=== PATIENT | male | born 1965 | race Hispanic/Latino ===

== ENCOUNTER 2017-06-02 18:13 | Emergency (ER) | payer BC ==
--- NOTE | 2017-06-02 21:02 | ER ---
Nurse's Notes [facility] Name: Reginaldo Ahmadi Age: 51 yrs Sex: Male : 1965 Arrival Date: 06/02/2017 Time: 18:14 Bed 13 Private MD: Diagnosis: Pain in left leg Presentation: 06/02 18:45 Presenting complaint: Patient states: Burning pain to left thigh that started last aj week. Transition of care: patient was not received from another setting of care. Onset of symptoms was May 26, 2017. Initial Sepsis Screen: Does the patient meet any 2 criteria? No. Patient's initial sepsis screen is negative. Does the patient have a suspected source of infection? No. Patient's initial sepsis screen is negative. Care prior to arrival: None. 18:45 Method Of Arrival: Ambulatory aj 18:45 Acuity: WANG 3 aj Triage Assessment: 18:47 General: Appears in no apparent distress. comfortable, Behavior is calm, cooperative, aj appropriate for age. Pain: Complains of pain in left quadriceps Pain currently is 5 out of 10 on a pain scale. Neuro: Level of Consciousness is awake, alert, obeys commands, Oriented to person, place, time, situation. Respiratory: Airway is patent Respiratory effort is even, unlabored, Respiratory pattern is regular, symmetrical. Derm: Skin is intact, is healthy with good turgor, Skin is pink, warm \T\ dry. normal. Musculoskeletal: Reports pain in lateral aspect of left thigh. Historical: - Allergies: 18:47 No Known Allergies; aj - Home Meds: 18:47 None [Active]; aj - PMHx: 18:47 Hypertension; Sleep Apnea; aj - PSHx: 18:47 nose; aj - Immunization history:: Adult Immunizations up to date. - Social history:: Smoking status: Patient/guardian denies using tobacco. Screenin:26 Abuse screen: Denies threats or abuse. Denies injuries from another. Nutritional bs1 screening: No deficits noted. Tuberculosis screening: No symptoms or risk factors identified. Fall Risk None identified. Assessment: 19:24 General: Appears in no apparent distress. Behavior is calm, cooperative, appropriate bs1 for age. Pain: Complains of pain in lateral aspect of left thigh and left leg and left quadriceps. Neuro: Level of Consciousness is awake, alert, obeys commands, Oriented to [employer] Worker are equal bilaterally Moves all extremities. Cardiovascular: Denies chest pain, palpitations, shortness of breath, Heart tones S1 S2 present Capillary refill < 3 seconds Patient's skin is warm and dry. Respiratory: Airway is patent Trachea midline Respiratory effort is even, unlabored, Respiratory pattern is regular, symmetrical, Breath sounds are clear bilaterally. GI: No deficits noted. No signs and/or symptoms were reported involving the gastrointestinal system. : No deficits noted. No signs and/or symptoms were reported regarding the genitourinary system. EENT: No deficits noted. No signs and/or symptoms were reported regarding the EENT system. Derm: Skin is intact, Skin is pink, warm \T\ dry. Musculoskeletal: Circulation, motion, and sensation intact. Capillary refill < 3 seconds, Range of motion: limited in left leg. 20:30 Reassessment: No changes from previously documented assessment. Patient and/or family bs1 updated on plan of care and expected duration. Pain level reassessed. Patient is alert, oriented x 3, equal unlabored respirations, skin warm/dry/pink. 21:22 Reassessment: Patient appears in no apparent distress at this time. Patient and/or bs1 family updated on plan of care and expected duration. Pain level reassessed. Patient is alert, oriented x 3, equal unlabored respirations, skin warm/dry/pink. Patient states feeling better. Vital Signs: 18:47 BP 147 / 98; Pulse 88; Resp 20; Temp 97.8; Pulse Ox 99% on R/A; Weight 89.36 kg; Height aj 5 ft. 5 in. (165.10 cm); Pain 5/10; 20:37 BP 121 / 89; Pulse 74; Resp 16; Pulse Ox 99% on R/A; mt 21:24 BP 120 / 83; Pulse 71; Resp 16; Temp 98.2(O); Pulse Ox 99% on R/A; bs1 18:47 Body Mass Index 32.78 (89.36 kg, 165.10 cm) ED Course: 18:14 Patient arrived in ED. as 18:46 Triage completed. aj 18:47 Arm band placed on right wrist. Patient placed in waiting room, Patient notified of aj wait time. 19:11 Aye Brown, TREVER is Primary Nurse. bs1 19:24 Mansoor Pradhan PA is PHCP. cp 19:24 Mansoor Dumont MD is Attending Physician. cp 19:26 Patient has correct armband on for positive identification. Bed in low position. Call bs1 light in reach. Side rails up X 1. Pulse ox on. NIBP on. 21:00 US Extremity Venous Uni Ltd In Process Unspecified. EDMS 21:02 Ultrasound completed. Patient tolerated well. aa4 21:23 No provider procedures requiring assistance completed. Patient did not have IV access bs1 during this emergency room visit. Administered Medications: No medications were administered Outcome: 21:02 Discharge ordered by MD. cp 21:23 Discharged to home ambulatory. bs1 21:23 Condition: stable 21:23 Discharge instructions given to patient, Instructed on discharge instructions, follow up and referral plans. medication usage, Demonstrated understanding of instructions, follow-up care, medications, Prescriptions given X 1. 21:24 Patient left the ED. bs1 Signatures: Dispatcher [employer] EDID Thelma Dewitt, RN RN Rekha Portillo Amanda aa4 Mansoor Pradhan PA PA cp Thompson, Moriah mt Salazar, Brittany, RN RN bs1
--- NOTE | 2017-06-02 21:02 | EDPHYS ---
Physician Documentation [facility] Name: Reginaldo Ahmadi Age: 51 yrs Sex: Male : 1965 Arrival Date: 06/02/2017 Time: 18:14 Bed 13 Private MD: Mansoor Haines HPI: 06/02 20:10 This 51 yrs old Male presents to ER via Ambulatory with complaints of Thigh cp Pain. 20:10 The patient presents with pain, that is acute. The complaints affect the lateral aspect cp of left thigh. 20:10 Context: resulted from an unknown cause, the patient can fully bear weight, the patient cp is able to ambulate, without difficulty. Onset: The symptoms/episode began/occurred last week, pain intermittent and patient reports being pain free now. Associated signs and symptoms: Pertinent negatives calf tenderness, numbness, tingling, warmth, weakness. Treatment prior to arrival includes: no previous treatment. Historical: - Allergies: 18:47 No Known Allergies; aj - Home Meds: 18:47 None [Active]; aj - PMHx: 18:47 Hypertension; Sleep Apnea; aj - PSHx: 18:47 nose; aj - Immunization history:: Adult Immunizations up to date. - Social history:: Smoking status: Patient/guardian denies using tobacco. ROS: 20:20 Constitutional: Negative for body aches, chills, fever, poor PO intake. cp 20:20 Eyes: Negative for injury, pain, redness, and discharge. cp 20:20 ENT: Negative for drainage from ear(s), ear pain, sore throat, difficulty swallowing, difficulty handling secretions. 20:20 Cardiovascular: Negative for chest pain, palpitations. 20:20 Respiratory: Negative for cough, shortness of breath, wheezing. 20:20 Abdomen/GI: Negative for abdominal pain, vomiting, diarrhea, constipation, black/tarry stool, rectal bleeding. 20:20 Back: Negative for injury or acute deformity, pain at rest, pain with movement, radiated pain. 20:20 : Negative for urinary symptoms, flank pain, testicular pain 20:20 Skin: Negative for cellulitis, rash. 20:20 Neuro: Negative for altered mental status, gait disturbance, weakness. 20:20 All other systems are negative. Exam: 20:25 Constitutional: The patient appears in no acute distress, alert, awake, comfortable, cp non-diaphoretic, non-toxic, well developed, well nourished. 20:25 Head/Face: Normocephalic, atraumatic. cp 20:25 Eyes: Periorbital structures: appear normal, Conjunctiva: normal, no exudate, no injection, Sclera: no appreciated abnormality, Lids and lashes: appear normal, bilaterally. 20:25 ENT: External ear(s): are unremarkable, Nose: is normal, Mouth: is normal. 20:25 Neck: ROM/movement: is normal, is supple, without pain, no range of motions limitations, no nuchal rigidity. 20:25 Chest/axilla: Inspection: normal, Palpation: is normal, no crepitus, no tenderness. 20:25 Cardiovascular: Rate: normal, Rhythm: regular. 20:25 Respiratory: the patient does not display signs of respiratory distress, Respirations: normal, no use of accessory muscles, no retractions, no splinting, no tachypnea. 20:25 Abdomen/GI: Exam negative for discomfort, distension, guarding, Inspection: abdomen appears normal. 20:25 Musculoskeletal/extremity: Extremities: grossly normal except: noted in the lateral aspect of left thigh: tenderness, There is no evidence of decreased ROM, deformity, ecchymosis, erythema, swelling. 20:25 Skin: cellulitis, is not appreciated, no rash present. Vital Signs: 18:47 BP 147 / 98; Pulse 88; Resp 20; Temp 97.8; Pulse Ox 99% on R/A; Weight 89.36 kg; Height aj 5 ft. 5 in. (165.10 cm); Pain 5/10; 20:37 BP 121 / 89; Pulse 74; Resp 16; Pulse Ox 99% on R/A; mt 21:24 BP 120 / 83; Pulse 71; Resp 16; Temp 98.2(O); Pulse Ox 99% on R/A; bs1 18:47 Body Mass Index 32.78 (89.36 kg, 165.10 cm) aj MDM: 19:25 Patient medically screened. cp 21:00 Data reviewed: vital signs, nurses notes, radiologic studies, ultrasound, and as a cp result, I will discharge patient. 06/02 20:05 Order name: Extremity Venous Uni Ltd; Complete Time: 21:10 cp 06/02 21:10 Interpretation: Report reviewed. cp Administered Medications: No medications were administered Disposition: 06/03 07:56 Co-signature as Attending Physician, Mansoor Dumont MD I agree with the assessment and rita plan of care. Disposition: 06/02/17 21:02 Discharged to Home. Impression: Pain in left leg. - Condition is Stable. - Discharge Instructions: Musculoskeletal Pain. - Prescriptions for Naprosyn 500 mg Oral Tablet - take 1 tablet by ORAL route 2 times per day take with food; 20 tablet. - Medication Reconciliation Form, Thank You Letter, Antibiotic Education, Prescription Opioid Use form. - Follow up: Private Physician; When: 2 - 3 days; Reason: Recheck today's complaints. - Problem is new. - Symptoms have improved. Signatures: Dispatcher [employer] EDThelma Ojeda, RN RN Mansoor Lucia MD MD cha Page, Corey, PA PA Aye Coppola, RN RN bs1
--- NOTE | 2017-06-02 21:10 | RAD REPORT ---
EXAM DESCRIPTION: [facility]06/02/2017 8:59 pm CLINICAL HISTORY: left leg pain COMPARISON: None. FINDINGS: Left common femoral, superficial femoral, popliteal and posterior tibial veins are compre ssible and demonstrate augmentation. Doppler demonstrates good flow. IMPRESSION: No evidence of deep venous thrombosis involving the left lower extremity.
== END 2017-06-02 21:24 | disposition home or self-care (01) ==
LOC: ER 18:13
DX: M79.652 Pain in left thigh (principal); I10 Essential (primary) hypertension; G47.30 Sleep apnea, unspecified
CPT/HCPCS: 93971; 99283